=== PATIENT | female | born 1995 | race Caucasian/White ===

== ENCOUNTER 2018-03-15 15:44 | Emergency (ER) | payer MEDICAID ==
[~2018-03-15] VITALS: Ht 157.5 cm; Wt 48.5 kg
[2018-03-15 15:54] VITALS: BP 105/71
[2018-03-15] MEDS: ACETAMINOPHEN 325 MG TAB PO ONE (17:33)
[2018-03-15 19:20] LABS: APPEARANCE,URINE SL CLOUDY (CLEAR); BILIRUBIN,URINE NEGATIVE (NEGATIVE); BLOOD, URINE NEGATIVE (NEGATIVE); COLOR,URINE YELLOW (YELLOW); LEUKOCYTE ESTERASE ,URINE TRACE (NEGATIVE); NITRITE, URINE NEGATIVE (NEGATIVE); UGLUCOSE NEGATIVE (NEGATIVE)
[2018-03-15 19:55] LABS: RBC,URINE NONE SEEN /HPF (0-5); WBC,URINE 80-100 /HPF (0-5)
[2018-03-15 20:06] VITALS: BP 102/59
== END 2018-03-15 20:06 | disposition home or self-care (01) ==
LOC: MED 15:44
DX: O23.42 Unspecified infection of urinary tract in pregnancy, second trimester (principal); Z3A.18 18 weeks gestation of pregnancy
CPT/HCPCS: 81001; 81025; 87086; 99284

== ENCOUNTER 2018-04-24 14:29 | Emergency (ER) | payer OTHER, MEDICAID ==
[~2018-04-24] VITALS: Ht 157.5 cm; Wt 50.8 kg
--- NOTE | 2018-04-24 14:38 | NUR ---
PT TAKEN TO OB BY ALEKSANDR FOREMAN
[2018-04-24 16:15] VITALS: BP 110/62
--- NOTE | 2018-04-24 16:27 | NUR ---
Patient being evaluated by physician at bedside.
--- NOTE | 2018-04-24 16:30 | NUR ---
22 YO F Brought back from L&D with c/o cough, rhinorrhea, difficulty breahting at night x 2 days; about 6 mongths ; estimated lmp 10/29/2017; M1; denies abdominal pain, vaginal bleeding LS CLEAR THROUGH OUT, ABD ROUND NON TENDER, PT DENIES ANY N/V/D. WILL CONTINUE TO MONITOR ER MD MADE AWARE. hx; denies rx; denies
[2018-04-24 17:48] VITALS: BP 112/64
--- NOTE | 2018-04-24 17:48 | NUR ---
Patient discharged with v/s stable. Written and verbal after care instructions given and explained. Patient alert, oriented and verbalized understanding of instructions. Ambulatory with steady gait. All questions addressed prior to discharge. ID band removed. Patient advised to follow up with PMD. Rx of RHINOCORT given. Patient educated on indication of medication including possible reaction and side effects. Opportunity to ask questions provided and answered.
== END 2018-04-24 17:48 | disposition home or self-care (01) ==
LOC: MED 14:29 → UNDOADMOB 14:30 → MLD 14:30 → MED 17:48
DX: O26.892 Other specified pregnancy related conditions, second trimester (principal); J30.9 Allergic rhinitis, unspecified; Z3A.24 24 weeks gestation of pregnancy
CPT/HCPCS: 36415; 87804; 99284

== ENCOUNTER 2018-05-02 15:43 | Observation (INO) | payer MEDICAID, OTHER ==
[~2018-05-02] VITALS: Ht 157.5 cm; Wt 50.8 kg
[2018-05-02 17:53] VITALS: BP 99/66
== END 2018-05-02 16:45 | disposition home or self-care (01) ==
LOC: MLD 15:43
PROVIDERS: ADMIT Obstetrics & Gynecology; ATTEND Obstetrics & Gynecology
DX: O36.8120 Decreased fetal movements, second trimester, not applicable or unspecified (principal); Z3A.23 23 weeks gestation of pregnancy
CPT/HCPCS: 81000; G0378

== ENCOUNTER 2019-08-31 23:17 | Emergency (ER) | payer MEDICAID ==
[~2019-08-31] VITALS: Ht 160 cm; Wt 48.1 kg
[2019-08-31 23:27] VITALS: BP 104/73
--- NOTE | 2019-08-31 23:30 | NUR ---
BIBS. C/O ABD PAIN/NAUSEA X 1 D. ABD SOFT, NON-DISTENDED. NO PAIN UPON PALPATION. STATES PAIN IS INTERMITTENT AND UNPROVOKED. BOWEL SOUNDS ACTIVE X4. DENIES HEMATURIA, POLYURIA. STATES SHES HAD LOOSE STOOLS X 1 DAY ACCOMPANIED BY NAUSEA. DENIES VOMITTING. NO RESP DISTRESS NOTED. PMH- NONE MEDS-NONE ALLERGIES- NONE.
[2019-09-01] MEDS ORDERED: NACL 0.9% 1,000 ML IV ONE
[2019-09-01 00:48] LABS: BASOPHILS # (AUTO) 0.1 K/uL (0.00-0.22); BASOPHILS % (AUTO) 1.5 % (0.0-2.0); EOSINOPHILS # (AUTO) 0.1 K/uL (0-0.4); EOSINOPHILS % (AUTO) 1.2 % (0.0-4.0); HEMOGLOBIN 12.4 g/dL (12.0-16.0); LYMPHOCYTES # (AUTO) 0.8 K/uL (2.5-16.5); LYMPHOCYTES % (AUTO) 19.5 % (20.5-51.1); MEAN CORPUSCULAR HEMOGLOBIN 27 pg (27-31); MEAN CORPUSCULAR HGB CONC 33 g/dL (33-37); MEAN CORPUSCULAR VOLUME 82.7 fL (80-94); MONOCYTES # (AUTO) 0.3 K/uL (0.8-1.0); MONOCYTES % (AUTO) 7.1 % (1.7-9.3); NEUTROPHILS % (AUTO) 70.7 % (42.2-75.2); PLATELET COUNT (AUTO) 147 K/uL (140-450); RED CELL DISTRIBUTION WIDTH 14.4 % (11.6-13.7); WHITE BLOOD COUNT (AUTO) 4.2 K/uL (4.8-10.8)
[2019-09-01 01:00] LABS: ANION GAP 13.4 (8-16); CARBON DIOXIDE 23.5 mmol/L (21-32); CREATININE 0.5 mg/dL (0.6-1.3); POTASSIUM 3.9 mmol/L (3.5-5.1)
[2019-09-01 01:00] LABS: APPEARANCE,URINE CLEAR (CLEAR); BILIRUBIN,URINE NEGATIVE (NEGATIVE); BLOOD, URINE NEGATIVE (NEGATIVE); COLOR,URINE YELLOW (YELLOW); LEUKOCYTE ESTERASE ,URINE NEGATIVE (NEGATIVE); NITRITE, URINE NEGATIVE (NEGATIVE); UGLUCOSE NEGATIVE (NEGATIVE)
[2019-09-01 01:06] LABS: ALBUMIN 3.3 g/dL (3.4-5.0); TOTAL BILIRUBIN 0.3 mg/dL (0.0-1.0)
[2019-09-01 01:25] VITALS: BP 104/73
== END 2019-09-01 01:25 | disposition home or self-care (01) ==
LOC: MED 23:17
DX: K52.9 Noninfective gastroenteritis and colitis, unspecified (principal)
CPT/HCPCS: 36415; 80053; 81003; 81025; 82150; 83690; 84703; 85025; 99283; J7030; 96360

== ENCOUNTER 2021-12-21 09:08 | Emergency (ER) | payer MEDICAID ==
[~2021-12-21] VITALS: Ht 157.5 cm; Wt 49.9 kg
[2021-12-21 09:19] VITALS: BP 116/73
--- NOTE | 2021-12-21 09:25 | NUR ---
PT AMBULATED TO ER BED 4
--- NOTE | 2021-12-21 09:45 | NUR ---
25YO FEMALE PT C/O SHARP 8/10 GENITAL PAIN DUE TO INGROWN XYESTERDAY. PT STATES SHE SHAVED AND HAD INITIAL DISCOMFORT X3DAYS AGO. PT NOTES INCREASE IN SHAVING FREQUENCY. PT PRESENTS WITH REDDENED MILD SWELLING ON L LOWER MONS PUBIS. NO DRAINAGE OR PUS PRESENT. PT TENDER TO TOUCH. STATES MOST PAIN WHEN APPLIED PRESSURE TO AREA OR SITTING. DENIES DYSURIA, CHEST PAIN OR N/V/D. PT WAS GIVEN ANTIBIOTICS, MUPIROCIN" BY URGENT CARE AND HAS HAD NO RELIEF. PT AAOX4, RESPIRATIONS EVEN AND UNLABORED. NKA NHX
--- NOTE | 2021-12-21 09:54 | NUR ---
25 Y/O FEMALE C/O OF SWELLING, PAIN AND REDNESS AND ITCHING ON THE LABIA. STATES THAT SHE SHAVES AND THAT SHE ONLY HAS ONE SEXUAL PARTNER, DENIES ANY URINARY SYMPTOMS NKA PMH: DENIES
--- NOTE | 2021-12-21 10:02 | NUR ---
Patient discharged with v/s stable. Written and verbal after care instructions given and explained. Patient verbalized understanding. Ambulatory with steady gait. All questions addressed prior to discharge. Advised to follow up with PMD.
--- NOTE | 2021-12-21 10:03 | NUR ---
The patient's care was reviewed and supervised by Sheryl Ring RN.
== END 2021-12-21 10:02 | disposition home or self-care (01) ==
LOC: MED 09:08
DX: L73.1 Pseudofolliculitis barbae (principal)
CPT/HCPCS: 81002; 81025; 99283

== ENCOUNTER 2022-02-25 08:46 | Emergency (ER) | payer MEDICAID ==
[~2022-02-25] VITALS: Ht 154.9 cm; Wt 54.4 kg
[2022-02-25 08:53] VITALS: BP 107/65
--- NOTE | 2022-02-25 09:00 | NUR ---
pt c/o dizziness, room is spinning, worse with position changes with n/v x2days. iv inserted to left ac #[id number].
[2022-02-25] MEDS ORDERED: NACL 0.9% 500 ML IV ONE (09:25)
[2022-02-25] MEDS ORDERED: MECLIZINE 25 MG TAB PO ONE (09:25)
[2022-02-25 10:21] LABS: BASOPHILS % (AUTO) 0.7 % (0.0-2.0); EOSINOPHILS # (AUTO) 0.1 K/uL (0-0.4); EOSINOPHILS % (AUTO) 2.4 % (0.0-4.0); HEMATOCRIT 35.2 % (36-48); HEMOGLOBIN 11.6 g/dL (12.0-16.0); LYMPHOCYTES # (AUTO) 1.3 K/uL (2.5-16.5); LYMPHOCYTES % (AUTO) 31.4 % (20.5-51.1); MEAN CORPUSCULAR HEMOGLOBIN 28 pg (27-31); MEAN CORPUSCULAR HGB CONC 33 g/dL (33-37); MEAN CORPUSCULAR VOLUME 83.9 fL (80-94); MONOCYTES # (AUTO) 0.3 K/uL (0.8-1.0); MONOCYTES % (AUTO) 5.8 % (1.7-9.3); NEUTROPHILS # (AUTO) 2.6 K/uL (1.8-7.7); NEUTROPHILS % (AUTO) 59.7 % (42.2-75.2); PLATELET COUNT (AUTO) 189 K/uL (140-450); RED BLOOD CELL COUNT(AUTO) 4.19 MIL/uL (4.20-5.40); RED CELL DISTRIBUTION WIDTH 15.3 % (11.6-13.7); WHITE BLOOD COUNT (AUTO) 4.3 K/uL (4.8-10.8)
--- NOTE | 2022-02-25 10:22 | NUR ---
pending urine and blood draw
[2022-02-25 10:43] LABS: ANION GAP 9.8 (8-16); CARBON DIOXIDE 26.9 mmol/L (21-32); CREATININE 0.6 mg/dL (0.6-1.3); POTASSIUM 3.7 mmol/L (3.5-5.1)
[2022-02-25] MEDS ORDERED: MECL-370 PO (13:52)
[2022-02-25 14:11] VITALS: BP 108/71
== END 2022-02-25 14:11 | disposition home or self-care (01) ==
LOC: MED 08:46
DX: E86.0 Dehydration (principal); R42 Dizziness and giddiness; D64.9 Anemia, unspecified; F16.90 Hallucinogen use, unspecified, uncomplicated; Z79.899 Other long term (current) drug therapy
CPT/HCPCS: 36415; 80048; 81002; 81025; 83735; 85025; 93005; 96360; 99284; J7030; J8597

== ENCOUNTER 2022-11-06 23:35 | Emergency (ER) | payer MEDICAID ==
[~2022-11-06] VITALS: Ht 157.5 cm; Wt 54.4 kg
[~2022-11-06 23:35] MED LIST: MECL-370 PO
[2022-11-06 23:40] VITALS: BP 123/80
--- NOTE | 2022-11-06 23:43 | NUR ---
TO LOBBY A/W BED AMBULATORY
--- NOTE | 2022-11-07 00:12 | NUR ---
Pt to bed 11 accompanied by [place] [facility]
--- NOTE | 2022-11-07 00:27 | NUR ---
Patient being evaluated by physician at bedside.
[2022-11-07] MEDS ORDERED: IBUP-2213 PO (00:51)
[2022-11-07 01:03] VITALS: BP 123/80
--- NOTE | 2022-11-07 01:03 | NUR ---
Patient discharged with v/s stable. Written and verbal after care instructions given and explained. New rx ibuprofen. Patient verbalized understanding. Ambulatory with steady gait. Accompanied by family members. All questions addressed prior to discharge. Advised to follow up with PMD.
== END 2022-11-07 01:03 | disposition home or self-care (01) ==
LOC: MED 23:35
DX: S60.031A Contusion of right middle finger without damage to nail, initial encounter (principal); R51.9 Headache, unspecified; Z79.899 Other long term (current) drug therapy; Y04.8XXA Assault by other bodily force, initial encounter; Y93.89 Activity, other specified; Y92.89 Other specified places as the place of occurrence of the external cause; Y99.8 Other external cause status
CPT/HCPCS: 99282

== ENCOUNTER 2023-01-23 16:36 | Emergency (ER) | payer MEDICAID ==
[~2023-01-23] VITALS: Ht 157.5 cm; Wt 53.7 kg
[~2023-01-23 16:36] MED LIST changes: +IBUP-2213 PO
[2023-01-23 16:58] VITALS: BP 123/78; PULSE 105; RESP 20; TEMP 98.8; O2SAT 100
[2023-01-23] MEDS ORDERED: KETOROLAC 30 MG/ML VIAL IM ONE (17:45)
[2023-01-23] MEDS ORDERED: CYCLOBENZAPRINE 10 MG TAB PO ONE (17:45)
[2023-01-23] MEDS ORDERED: BACITRACIN OINT 500 UNITS/GM PKT TP ONE (17:50)
[2023-01-23] MEDS ORDERED: ONDANSETRON 4 MG ODT PO ONE (18:05)
[2023-01-23] MEDS ORDERED: CYCL-711 PO (18:22)
[2023-01-23] MEDS ORDERED: LID5T TP (18:22)
[2023-01-23] MEDS ORDERED: IBUP-2213 PO (18:22)
--- NOTE | 2023-01-23 18:32 | NUR ---
WOUND TO LEFT FOREARM IRRIGATED WITH BETADINE x NS. DRESSED WITH NON ADHERENT X 2 AND BANDAGED WITH ROLL GAUZE X 1.
--- NOTE | 2023-01-23 19:40 | NUR ---
Patient discharged with v/s stable. Written and verbal after care instructions given and explained. Patient alert, oriented and verbalized understanding of instructions. Ambulatory with steady gait. All questions addressed prior to discharge. ID band removed. Patient advised to follow up with PMD. Rx of FGLEXERIL, IBUPROFEN, LIDOCAINE PATCH given. Patient educated on indication of medication including possible reaction and side effects. Opportunity to ask questions provided and answered.
== END 2023-01-23 19:40 | disposition home or self-care (01) ==
LOC: MED 16:36
DX: S50.11XA Contusion of right forearm, initial encounter (principal); S70.11XA Contusion of right thigh, initial encounter; Z79.899 Other long term (current) drug therapy; V89.2XXA Person injured in unspecified motor-vehicle accident, traffic, initial encounter; Y93.89 Activity, other specified; Y92.89 Other specified places as the place of occurrence of the external cause; Y99.8 Other external cause status
CPT/HCPCS: 73090; 90471; 90715; 99284